=== PATIENT | female | born 1995 | race Caucasian/White ===

== ENCOUNTER 2017-08-18 15:58 | Emergency (ER) | payer OTHER ==
[2017-08-18] MEDS: ONDANSETRON PF 4 MG/2 ML VIAL. IV (16:58)
[2017-08-18] MEDS: IV NORMAL SALINE 1000ML BAG 1,000 ML IV (16:59)
[2017-08-18] MEDS: fentaNYL PF VIAL 100 MCG/2 ML VIAL IV (17:01)
[2017-08-18 17:04] LABS: URINE HCG POC HCG NEGATIVE (Negative)
[2017-08-18 17:10] LABS: ADD MAN DIFF? NO
[2017-08-18 17:12] LABS: BASO # 0.1 x10^3/uL (0.0-0.2); BASO % 1 % (0-3); EOS # 0.2 x10^3/uL (0.0-0.7); EOS % 2 % (0-3); HEMOGLOBIN 13.3 g/dL (12.0-15.5); LYMPH # 2.6 x10^3/uL (1.0-4.8); LYMPH % 25 % (24-48); MEAN CORPUSCULAR HEMOGLOBIN 30 pg (25-35); MEAN CORPUSCULAR HGB CONC 34 g/dL (31-37); MEAN CORPUSCULAR VOLUME 87 fL (79-100); MONO # 0.6 x10^3/uL (0.0-1.1); MONO % 6 % (0-9); NEUT # 6.9 x10^3uL (1.8-7.7); NEUT % 66 % (31-73); PLATELET COUNT 264 x10^3/uL (140-400); RED CELL DISTRIBUTION WIDTH 12.9 % (11.5-14.5); WHITE BLOOD COUNT 10.3 x10^3/uL (4.0-11.0)
[2017-08-18 17:13] LABS: BILIRUBIN,URINE NEGATIVE (NEG); CLARITY,URINE CLEAR; COLOR,URINE YELLOW; GLUCOSE,URINE NEGATIVE (NEG); NITRITE,URINE NEGATIVE (NEG); PH,URINE 6.5; PROTEIN,URINE NEGATIVE (NEG-TRACE); UROBILINOGEN,URINE 0.2 mg/dL (0.2 mg/dL)
[2017-08-18 17:20] LABS: BARBITURATES NEG (NEG); BENZODIAZEPINES NEG (NEG); CANNABINOIDS POS (NEG); COCAINE NEG (NEG); METHADONE NEG (NEG); OPIATES NEG (NEG); PHENCYCLIDINE NEG (NEG)
[2017-08-18 17:22] LABS: AMPHETAMINE/METHAMPHETAMINE NEG (NEG); ETHANOL, URINE NEG (NEG)
[2017-08-18 17:23] LABS: PARTIAL THROMBOPLASTIN TIME 23 SEC (24-38); PROTHROMBIN TIME PATIENT 12.9 SEC (11.7-14.0)
[2017-08-18 17:24] LABS: BACTERIA,URINE FEW /HPF (0-FEW); RBC,URINE 0 /HPF (0-2); SQUAMOUS EPITHELIAL CELL,UR MOD /LPF; WBC,URINE 0 /HPF (0-4)
[2017-08-18 17:25] LABS: HYALINE CASTS, URINE MODERATE /HPF
[2017-08-18 17:29] LABS: ANION GAP 11 (6-14); BLOOD UREA NITROGEN 11 mg/dL (7-20); BUN/CREATININE RATIO 16 (6-20); CALCIUM 8.8 mg/dL (8.5-10.1); CARBON DIOXIDE 23 mmol/L (21-32); CHLORIDE 107 mmol/L (98-107); CREATININE 0.7 mg/dL (0.6-1.0); GFR 104.6; GLUCOSE 114 mg/dL (70-99); SODIUM 141 mmol/L (136-145)
[2017-08-18 17:35] LABS: ACETAMIN < 2 mcg/ml (10-30); ALBUMIN 3.4 g/dL (3.4-5.0); ALK PHOS 62 U/L (46-116); ALT (SGPT) 22 U/L (14-59); AST (SGOT) 22 U/L (15-37); CREATINE KINASE 75 U/L (26-192); ETHANOL < 10 mg/dL (0-10); LIPASE 129 U/L (73-393); SALIC < 2.8 mg/dL (2.8-20.0); TOTAL BILIRUBIN 0.1 mg/dL (0.2-1.0); TOTAL PROTEIN 6.9 g/dL (6.4-8.2)
[2017-08-18 17:37] LABS: TROPONINI < 0.017 ng/mL (0.000-0.055)
[2017-08-18 17:39] LABS: NT-PRO BNP 56 pg/mL (0-124)
[2017-08-18 17:42] LABS: THYROID STIM HORMONE (TSH) 1.042 uIU/mL (0.358-3.74)
[2017-08-18] MEDS ORDERED: CONTRAST GIVEN MC (17:45)
[2017-08-18] MEDS: IOHEXOL 300 MG/ML 100ML VIAL. IV (17:50)
== END 2017-08-18 19:49 | disposition home or self-care (01) ==
LOC: ER 15:58
DX: R07.89 Other chest pain (principal); R20.2 Paresthesia of skin; F12.10 Cannabis abuse, uncomplicated; R53.1 Weakness; F32.9 Major depressive disorder, single episode, unspecified
CPT/HCPCS: 36415; 70450; 70496; 70498; 71045; 80053; 80307; 80329; 81001; 81025; 82550; 83690; 83735; 83880; 84443; 84484; 85025; 85610; 85730; 93005; 96361; 96374; 96375; 99285-25; G0480; J2405; J3010; J7030; Q9967

== ENCOUNTER 2018-04-13 16:19 | Emergency (ER) | payer OTHER ==
[~2018-04-13] VITALS: Ht 160 cm; Wt 84.8 kg
[~2018-04-13 16:19] MED LIST: BUSP10TA PO; ESCITALOPRAM OX20 MG PO; HYDR25CA PO; LEXAPRO20 MG PO; NORE1TAB PO; OXCA300T3 PO
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
[2018-04-13 17:05] LABS: BASO # 0.1 x10^3/uL (0.0-0.2); BASO % 1 % (0-3); EOS # 0.2 x10^3/uL (0.0-0.7); EOS % 2 % (0-3); HEMATOCRIT 36.9 % (36.0-47.0); HEMOGLOBIN 12.7 g/dL (12.0-15.5); LYMPH # 3.6 x10^3/uL (1.0-4.8); LYMPH % 36 % (24-48); MEAN CORPUSCULAR HEMOGLOBIN 30 pg (25-35); MEAN CORPUSCULAR HGB CONC 35 g/dL (31-37); MEAN CORPUSCULAR VOLUME 87 fL (79-100); MONO # 0.6 x10^3/uL (0.0-1.1); MONO % 6 % (0-9); NEUT # 5.5 x10^3uL (1.8-7.7); NEUT % 55 % (31-73); PLATELET COUNT 272 x10^3/uL (140-400); RED BLOOD COUNT 4.26 x10^6/uL (3.50-5.40); RED CELL DISTRIBUTION WIDTH 12.8 % (11.5-14.5)
[2018-04-13 17:07] LABS: BILIRUBIN,URINE NEGATIVE (NEG); CLARITY,URINE CLEAR; COLOR,URINE YELLOW; NITRITE,URINE NEGATIVE (NEG); PROTEIN,URINE NEGATIVE (NEG-TRACE); UROBILINOGEN,URINE 0.2 mg/dL (0.2 mg/dL)
[2018-04-13 17:18] LABS: CALCIUM 8.9 mg/dL (8.5-10.1); CREATININE 0.9 mg/dL (0.6-1.0); GFR 78.3; POTASSIUM 3.6 mmol/L (3.5-5.1)
[2018-04-13 17:24] LABS: ALBUMIN 3.6 g/dL (3.4-5.0); TOTAL BILIRUBIN 0.3 mg/dL (0.2-1.0); TOTAL PROTEIN 7.2 g/dL (6.4-8.2)
[2018-04-13 17:28] LABS: PREG TEST PT QUAL NEGATIVE (NEG)
[2018-04-13 17:31] LABS: BACTERIA,URINE FEW /HPF (0-FEW); RBC,URINE OCC /HPF (0-2); WBC,URINE 0 /HPF (0-4)
[2018-04-13 17:32] LABS: HYALINE CASTS, URINE OCCASIONAL /HPF; SQUAMOUS EPITHELIAL CELL,UR MOD /LPF
[2018-04-13] MEDS ORDERED: ACETAMINOPHEN 500 MG TABLET PO ONE (17:45)
--- NOTE | 2018-04-13 19:04 | RAD ---
Transvaginal ultrasound pelvis: HISTORY: Pelvic pain Transvaginal sonographic examination of the pelvis were performed and multiple static images were obtained. The uterus and ovaries appear normal. The endometrium appears normal measures 2.5 mm in thickness. The right ovary measures 2.6 x 1.6 x 1.3 cm and has normal blood flow. The left ovary measures 2.0 x 1.4 x 1.3 cm and has normal blood flow. There is trace of free fluid. IMPRESSION: No significant findings. Electronically signed by: Edinson Ashley III, MD (04/13/2018 7:00 PM) [facility]
[2018-04-13] MEDS ORDERED: cefTRIAXone IM 250 MG VIAL IM ONE (20:00)
[2018-04-13] MEDS ORDERED: DOXY100C14 PO (20:03)
[2018-04-13 20:11] VITALS: BP 116/63
[2018-04-14 12:18] LABS: GC PROBE Negative (Negative)
== END 2018-04-13 20:19 | disposition home or self-care (01) ==
LOC: ER 16:19
DX: N73.9 Female pelvic inflammatory disease, unspecified (principal); F41.9 Anxiety disorder, unspecified; F32.9 Major depressive disorder, single episode, unspecified; K21.9 Gastro-esophageal reflux disease without esophagitis; F17.210 Nicotine dependence, cigarettes, uncomplicated
CPT/HCPCS: 36415; 76830; 80053; 81001; 83690; 84703; 85025; 87491; 87591; 96372; 99284; J0696; Q0111

== ENCOUNTER 2018-11-15 01:55 | Emergency (ER) | payer OTHER ==
[~2018-11-15] VITALS: Ht 160 cm; Wt 77.6 kg
[~2018-11-15 01:55] MED LIST changes: +DOXY100C14 PO
[2018-11-15] MEDS ORDERED: LIDOCAINE 1%/EPI 1:100,000 20 ML VIAL. ONE (02:35)
[2018-11-15] MEDS ORDERED: LIDOCAINE 2%/EPI 1:100,000 20 ML VIAL. IJ ONE (02:45)
[2018-11-15] MEDS ORDERED: NEOMY/BACITR/POLYMYXIN OINT PACKET. TP ONE (02:45)
[2018-11-15] MEDS ORDERED: KETOROLAC 30 MG/ML VIAL. IM ONE (03:15)
[2018-11-15 03:30] VITALS: BP 110/60
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
== END 2018-11-15 04:16 | disposition home or self-care (01) ==
LOC: ER 01:55
DX: S01.112A Laceration without foreign body of left eyelid and periocular area, initial encounter (principal); M54.2 Cervicalgia; R51 Headache; K21.9 Gastro-esophageal reflux disease without esophagitis; Y08.09XA Assault by strike by other specified type of sport equipment, initial encounter; Y93.89 Activity, other specified; Y92.89 Other specified places as the place of occurrence of the external cause; Y99.8 Other external cause status
CPT/HCPCS: 12013; 70450; 70486; 72125; 96372; 99284; J1885; J2060; J3490

== ENCOUNTER 2018-12-26 15:48 | Emergency (ER) | payer OTHER ==
[~2018-12-26] VITALS: Ht 162.6 cm; Wt 75.3 kg
[2018-12-26 15:48] VITALS: BP 125/64
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
--- NOTE | 2018-12-26 16:56 | RAD ---
Exam: Left finger 3 views INDICATION: Pinky finger injury TECHNIQUE: Frontal view of the hand with oblique and lateral views of the fifth digit Comparisons: None FINDINGS: Transverse comminuted fracture through the base of the proximal metaphysis of the proximal phalanx fifth digit. [place] radial angulation and moderate displacement is noted. There is surrounding soft tissue swelling. No other fractures are seen. Bone mineralization is normal. IMPRESSION: Transverse comminuted fracture through the proximal phalanx fifth digit at its proximal metaphysis Electronically signed by: Evette Kwan MD (12/26/2018 4:52 PM) [facility]
[2018-12-26] MEDS ORDERED: BUPIVACAINE MPF 0.5% 30 ML VIAL. INJ ONE (17:00)
--- NOTE | 2018-12-26 18:04 | RAD ---
Left fifth finger 3 views. HISTORY: Post reduction 3 views were taken of the left fifth finger. There is been an improvement in the angulation with persistent mild angulation of the fracture of the proximal phalanx. Angulation is best seen on the oblique view. There is slight displacement. IMPRESSION: 1. Mild improvement in the angulation with persistent angulation best seen on the oblique view. 2. Mild displacement. Electronically signed by: Jose Luis Salinas MD (12/26/2018 6:01 PM) [facility]
[2018-12-27] MEDS ORDERED: HYDR-2761 PO (21:17)
== END 2018-12-26 18:10 | disposition home or self-care (01) ==
LOC: ER 15:48
DX: S62.617A Displaced fracture of proximal phalanx of left little finger, initial encounter for closed fracture (principal); F41.9 Anxiety disorder, unspecified; F32.9 Major depressive disorder, single episode, unspecified; K21.9 Gastro-esophageal reflux disease without esophagitis; Z90.89 Acquired absence of other organs; W23.0XXA Caught, crushed, jammed, or pinched between moving objects, initial encounter; Y93.89 Activity, other specified; Y92.89 Other specified places as the place of occurrence of the external cause; Y99.8 Other external cause status
CPT/HCPCS: 26725; 73140; 99284; J3490

== ENCOUNTER 2018-12-27 20:29 | Emergency (ER) | payer OTHER ==
[~2018-12-27] VITALS: Ht 162.6 cm; Wt 75.3 kg
[2018-12-27 20:40] VITALS: BP 125/64
--- NOTE | 2018-12-27 21:10 | PHYS DOC ---
Past Medical History Past Medical History: Anxiety, Depression, GERD, Other Additional Past Medical Histor: CUTTING, ulcer, chlamydia and Trichomonas Past Surgical History: Tonsillectomy Additional Past Surgical Histo: stent teeth Alcohol Use: Occasionally Drug Use: Cocaine, Marijuana Adult General Chief Complaint Chief Complaint: HAND PROBLEM HPI HPI Patient is a 23 year old female who presents to the emergency department complaining of pain in her left fifth finger. Patient states she was evaluated in our emergency department yesterday and diagnosed with a fractured left fifth finger. Patient states she had to leave before pain medications were prescribed. She denies any new injury. She rates pain 8 out of 10 on the pain scale, she denies any alleviating factors. The pain increases with movement and palpation. ROS Patient denies any fever, numbness, tingling, or increased swelling of the left finger. All other ROS is neg unless otherwise noted in HPI. Review of Systems Review of Systems See Above Allergies Allergies Allergies Coded Allergies Type Severity Reaction Last Updated Verified No Known Drug Allergies 06/21/14 No Physical Exam Physical Exam Constitutional: Well developed, well nourished, no acute distress, non-toxic appearance. [] HENT: Normocephalic, atraumatic, bilateral external ears normal, nose normal. [] Eyes: conjunctiva normal, no discharge. [] Neck: Normal range of motion, no stridor. [] Cardiovascular:Heart rate regular rhythm Lungs & Thorax: Respirations even and unlabored, no retractions, no respiratory distress Skin: Warm, dry, no erythema, no rash. [] Extremities: Left fifth digit: Tenderness to palpation, cap refill less than 2 seconds, no cyanosis, ulnar gutter splint in place Neurologic: Alert and oriented X 3, normal motor function, normal sensory function, no focal deficits noted. [] Psychologic: Affect normal, judgement normal, mood normal. [] Current Patient Data Vital Signs Vital Signs Date Time Temp Pulse Resp B/P (MAP) Pulse Ox O2 Delivery O2 Flow Rate FiO2 12/27/18 20:40 98.6 107 15 125/64 (84) 98 Room Air 98.6 EKG EKG [] Radiology/Procedures Radiology/Procedures [] Course & Med Decision Making Course & Med Decision Making Pertinent Labs and Imaging studies reviewed. (See chart for details) Patient presented with request for pain medication after being diagnosed with a fracture of the left fifth digit at this ER yesterday. Patient states she was unable to wait for pain medication to be prescribed due to a number emergency. We'll prescribe hydrocodone 5/325 mg tablets take 1 tablet with food every 6 hours as needed for pain. Follow-up with the [facility] hand surgeon as instructed yesterday. Patient verbalized an understanding of home care, medications, follow-up, and return to ED instructions and was in agreement with the plan of care. [] Dragon Disclaimer Dragon Disclaimer This electronic medical record was generated, in whole or in part, using a voice recognition dictation system. Departure Departure Impression: Primary Impression: Inadequate pain control Disposition: HOME, SELF-CARE Condition: STABLE Referrals: ANEL CARMICHAEL MD (PCP) Patient Instructions: Pain Medicine Instructions, [id number] Additional Instructions: Fill the prescription and use as directed. Follow up with [facility] hand surgeon as instructed. Scripts Hydrocodone Bit/Acetaminophen (HYDROCODONE-APAP 5-325 ) 1 Tab Tablet 1 TAB PO PRN Q6HRS PRN for PAIN for 3 Days, #12 TAB 0 Refills Prov: KRYSTA IRELAND BROWNFIELD REDEVELOPMENT SITE MANAGER 12/27/18 KRYSTA IRELAND BROWNFIELD REDEVEL[employer] SITE MANAGER Dec 27, 2018 21:10
[2018-12-27] MEDS ORDERED: HYDR-2761 PO (21:17)
== END 2018-12-27 21:22 | disposition home or self-care (01) ==
LOC: ER 20:29
DX: M79.645 Pain in left finger(s) (principal); K21.9 Gastro-esophageal reflux disease without esophagitis; Z95.5 Presence of coronary angioplasty implant and graft
CPT/HCPCS: 99283

== ENCOUNTER 2019-02-09 04:55 | Emergency (ER) | payer OTHER ==
[~2019-02-09] VITALS: Ht 160 cm; Wt 77.1 kg
[~2019-02-09 04:55] MED LIST changes: +HYDR-2761 PO
[2019-02-09 06:22] LABS: PREG TEST PT QUAL NEGATIVE (NEG)
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
[2019-02-09] MEDS: ACETAMINOPHEN 500 MG TABLET PO ONE (07:14)
[2019-02-09] MEDS ORDERED: RALT400T PO (07:24)
[2019-02-09] MEDS ORDERED: EMTR1TAB8 PO (07:24)
[2019-02-09] MEDS: AZITHROMYCIN 250 MG TABLET. PO ONE (08:20)
[2019-02-09] MEDS: cefTRIAXone IM 250 MG VIAL IM ONE (08:20)
[2019-02-09] MEDS: RALTEGRAVIR 400 MG TABLET. PO ONE (08:20)
[2019-02-09] MEDS: EMTRICITAB/TENOFOVIR 200/300MG TABLET. PO ONE (08:21)
[2019-02-09 08:25] VITALS: BP 130/82
== END 2019-02-09 08:45 | disposition home or self-care (01) ==
LOC: ER 04:55 → EEVIPCON 04:55 → ER 08:45
DX: T74.21XA Adult sexual abuse, confirmed, initial encounter (principal); S00.83XA Contusion of other part of head, initial encounter; R51 Headache; Z88.8 Allergy status to other drugs, medicaments and biological substances; Y93.89 Activity, other specified; Y92.89 Other specified places as the place of occurrence of the external cause; Y99.8 Other external cause status
CPT/HCPCS: 70450; 72125; 84703; 96372; 99285; J0696; Q0144

== ENCOUNTER 2020-12-15 12:37 | Inpatient (IN) | payer OTHER ==
[~2020-12-15] VITALS: Ht 165.1 cm; Wt 73.6 kg
[~2020-12-15 12:37] MED LIST changes: +DOXY-181 PO; -DOXY100C14 PO; +EMTR1TAB8 PO; +RALT400T PO
[2020-12-15] MEDS ORDERED: IV NORMAL SALINE 1000ML BAG 1,000 ML IV ONE ×2 (13:00)
[2020-12-15] MEDS ORDERED: ZIPRASIDONE IM 20 MG VIAL. IM ONE ×2 (13:08→13:15)
[2020-12-15 13:25] LABS: BASO % 1 % (0-3); EOS # 0.1 x10^3/uL (0.0-0.7); EOS % 2 % (0-3); HEMATOCRIT 39.3 % (36.0-47.0); HEMOGLOBIN 13.4 g/dL (12.0-15.5); LYMPH # 2.2 x10^3/uL (1.0-4.8); LYMPH % 42 % (24-48); MEAN CORPUSCULAR HEMOGLOBIN 30 pg (25-35); MEAN CORPUSCULAR HGB CONC 34 g/dL (31-37); MEAN CORPUSCULAR VOLUME 87 fL (79-100); MONO # 0.3 x10^3/uL (0.0-1.1); MONO % 6 % (0-9); NEUT # 2.7 x10^3/uL (1.8-7.7); NEUT % 50 % (31-73); PLATELET COUNT 200 x10^3/uL (140-400); RED BLOOD COUNT 4.51 x10^6/uL (3.50-5.40); RED CELL DISTRIBUTION WIDTH 12.8 % (11.5-14.5); WHITE BLOOD COUNT 5.3 x10^3/uL (4.0-11.0)
[2020-12-15] MEDS ORDERED: KETAMINE HCL 500 MG/10 ML VIAL. IV ONE (13:30)
[2020-12-15 13:45] LABS: CALCIUM 8.5 mg/dL (8.5-10.1); CREATININE 0.8 mg/dL (0.6-1.0); GFR 87.4; POTASSIUM 4.2 mmol/L (3.5-5.1)
[2020-12-15] MEDS ORDERED: chlorproMAZINE IM 25 MG/ML AMPUL IM ONE (13:45)
[2020-12-15] MEDS ORDERED: diphenhydrAMINE 50 MG/ML VIAL IVP ONE (13:45)
[2020-12-15 13:47] LABS: PREG TEST PT QUAL NEGATIVE (NEG)
[2020-12-15 13:49] LABS: ACETAMIN < 2.0 mcg/ml (10-30); ETHANOL < 10 mg/dL (0-10); SALIC < 2.8 mg/dL (2.8-20.0)
[2020-12-15] MEDS ORDERED: diphenhydrAMINE 50 MG/ML VIAL ONE (13:52)
[2020-12-15] MEDS ORDERED: OLANZapine IM 10 MG VIAL. IM ONE (14:00)
--- NOTE | 2020-12-15 14:19 | RAD ---
AP chest x-ray HISTORY: Drug overdose. FINDINGS: Heart size normal. Mediastinal silhouette is normal. No pneumothorax, pulmonary opacities o r pleural effusions. Bones are unremarkable. IMPRESSION: No acute process evident. Electronically signed by: Jr Quintana MD (12/15/2020 2:17 PM) [facility]
--- NOTE | 2020-12-15 14:39 | RAD ---
CT HEAD INDICATION: Altered mental status COMPARISON: None Available. Exposure: One or more of the following individualized dose reduction techniques were utilized for thi s examination: 1. Automated exposure control 2. Adjustment of the mA and/or kV according to patient size 3. Use of iterative reconstruction technique TECHNIQUE: 5 mm contiguous axial images were obtained from the skull base to the vertex in both bone and soft tissue algorithm. FINDINGS: No abnormal attenuation within the brain parenchyma. No evidence of acute intracranial hemorrhage. No extra-axial fluid collections. No mass effect or midline shift. Ventricular size is appropriate. Basal cisterns are patent. No fractures identified.Whatley-white differentiation is preserved.Globes and orbits are within normal l imits. Paranasal sinuses and mastoid air cells are clear. IMPRESSION: No acute intracranial findings. Electronically signed by: Bernardino Newsome MD (12/15/2020 2:36 PM) [id number]
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
[2020-12-15 14:48] LABS: BILIRUBIN,URINE NEGATIVE (NEG); CLARITY,URINE CLEAR; COLOR,URINE YELLOW; NITRITE,URINE NEGATIVE (NEG); PH,URINE 6.5 (<5.0-8.0); PROTEIN,URINE NEGATIVE (NEG-TRACE); UROBILINOGEN,URINE 0.2 mg/dL (0.2 mg/dL)
--- NOTE | 2020-12-15 14:50 | EKG ---
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
[2020-12-15 14:54] LABS: BARBITURATES NEG (NEG); BENZODIAZEPINES NEG (NEG); CANNABINOIDS NEG (NEG); COCAINE NEG (NEG); METHADONE NEG (NEG); OPIATES NEG (NEG); PHENCYCLIDINE NEG (NEG)
[2020-12-15 14:59] LABS: AMPHETAMINE/METHAMPHETAMINE NEG (NEG); BACTERIA,URINE 0 /HPF (0-FEW); RBC,URINE 0 /HPF (0-2); WBC,URINE 0 /HPF (0-4)
[2020-12-15 15:40] LABS: PROTHROMBIN TIME PATIENT 13.5 SEC (11.7-14.0)
[2020-12-15 17:27] LABS: ACETAMIN < 2.0 mcg/ml (10-30)
[2020-12-15 18:29] VITALS: BP 122/73
--- NOTE | 2020-12-15 18:52 | HP ---
ADMIT DATE: 12/15/2020 CHIEF COMPLAINT: Ingestion of Xanax. HISTORY OF PRESENT ILLNESS: The patient is a pleasant 25-year-old female who was having an argument with her family. She apparently took a bottle of 90 Xanax and swallow it the right in front of them. She presented to the ER for evaluation by ambulance. She was screaming. The ER doctor appropriately sedated her with some Thorazine and Geodon. She was still screaming, we had to give her an IM injection of Zyprexa. She is now in room 4 in the ER where she has been examined. PAST MEDICAL HISTORY: Psychiatric issues. Suspect possible schizophrenia, depression, anxiety. ALLERGIES: None. FAMILY HISTORY: Depression. SOCIAL HISTORY: We were not sure if she smokes, drinks or take drugs. She is sedated. MEDICATIONS: Reviewed, please refer to the MRAD. She has a history of being on Zyprexa. REVIEW OF SYSTEMS: Unable to obtain. The patient is sedated. PHYSICAL EXAMINATION: VITALS: Within normal limits and are stable. GENERAL: She is sedated. HEENT: Normal cephalic atraumatic, external auditory canals are patent. EYES: Extraocular muscles are intact, pupils are equally round and reactive to light and accommodation. MUSCULOSKELETAL: Well developed, well nourished, good range of motion. ENDOCRINE: No thyromegaly was palpated. LYMPHATICS: No cervical chain or axillary nodes were noted. HEMATOPOIETIC: No bruising. NECK: Supple, no JVD, no thyromegaly was noted. LUNGS: Clear to auscultation in all lung morrell without rhonchi or wheezing. HEART: RRR, S1, S2 present. Peripheral pulses intact, no obvious murmurs were noted. ABDOMEN: Soft, nontender. Positive bowel sounds no organomegaly, normal bowel sounds. EXTREMITIES: Without any cyanosis, clubbing, or edema. Pedal pulses intact, Homans sign is negative. NEUROLOGIC: She is sedated. PSYCHIATRIC: She is sedated. SKIN: No ulcerations or rashes, good skin turgor, no jaundice. VASCULAR: Good capillary refill, neurovascular bundle appears to be intact. LABORATORY DATA: Hematology is normal. Electrolytes are normal. Glucose is slightly high at 119. INR is 1. Drug screen surprisingly negative. Urinalysis is negative. COVID testing is negative. Chest x-ray is negative. CT of the head is negative. ASSESSMENT AND PLAN: Ingestion of benzodiazepines. The patient has been admitted. We are using p.r.n. antipsychotics including Zyprexa, which seems to work best for her. She also got a dose of Geodon, ketamine, Thorazine and Benadryl. For now, we are going to let her sleep this off for a couple of days. We will continue her p.r.n. sedatives and then once she has cleared the drugs from her system, we will have to have the psychiatric assessment team look at her cardiac monitoring, home medications when possible, venous thrombosis prophylaxis. Full code. LUIS/ALBERTO DR: Luna TID: [id number]
[2020-12-15 19:21] VITALS: BP 119/70
[2020-12-15] MEDS ORDERED: ETOMIDATE 20 MG/10 ML VIAL. IV ONE (20:25)
[2020-12-15] MEDS ORDERED: SUCCINYLCHOLINE 200 MG/10 ML VIAL. ONE (20:26)
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
--- NOTE | 2020-12-16 04:56 | NUR ---
Brianda, biodiesel processing technician, has been charting in the ED 1:1 charting option, not able to visualize per this television script writer, Brianda did show that she was charting every 15 minutes as per order
--- NOTE | 2020-12-16 06:18 | NUR ---
Brianda Torres, ed staff tech, sitting on 1:1, has been charting vitals, 1:1 room checks, etc, per ED charting, this data analyst report writer unable to view per my assessment...
[2020-12-16 07:00] VITALS: BP 124/76
[2020-12-16 11:00] VITALS: BP 117/68
--- NOTE | 2020-12-16 13:31 | PDOC ---
[facility] [facility] PROGRESS NOTE Date of Service DOS: DATE: 12/16/20 TIME: 13:22 Chief Complaint Chief Complaint Acute toxic encephalopathy Intentional suicide attempt Drug overdose PAT evaluation Continue one-to-one observation History of Present Illness History of Present Illness 25-year-old female who was having an argument with her family. She apparently took a bottle of 90 Xanax and swallow it the right in front of them. She presented to the ER for evaluation by ambulance. She was screaming. The ER doctor appropriately sedated her with some Thorazine and Geodon. She was still screaming, we had to give her an IM injection of Zyprexa. 12/16/2020 No acute events overnight. Patient is resting comfortably in her bed. Pending psych evaluation with PAT team. Patient's chart, labs, images were reviewed and discussed with RN Vitals/I&O Vitals/I&O: Vital Signs Date Time Temp Pulse Resp B/P (MAP) Pulse Ox O2 Delivery O2 Flow Rate FiO2 12/16/20 11:00 98.1 102 18 117/68 (84) 98 Room Air 98.1 I & O 12/15/20 12/15/20 12/16/20 15:00 23:00 07:00 Intake Total 1000 ml 1000 ml 0 ml Output Total 175 ml Balance 1000 ml 825 ml 0 ml Physical Exam General: Alert, Oriented X3, Cooperative Heart: Regular rate Lungs: Clear Abdomen: Normal bowel sounds Extremities: No clubbing Skin: No rashes Labs Labs: Laboratory Tests Test 12/15/20 14:10 12/15/20 15:05 12/15/20 16:48 12/15/20 17:31 Urine Collection Type Unknown Urine Color Yellow Urine Clarity Clear Urine pH 6.5 (<5.0-8.0) Urine Specific Arthur <=1.005 (1.000-1.030) Urine Protein Negative mg/dL (NEG-TRACE) Urine Glucose (UA) Negative mg/dL (NEG) Urine Ketones (Stick) Negative mg/dL (NEG) Urine Blood Negative (NEG) Urine Nitrite Negative (NEG) Urine Bilirubin Negative (NEG) Urine Urobilinogen Dipstick 0.2 mg/dL (0.2 mg/dL) Urine Leukocyte Esterase Negative (NEG) Urine RBC 0 /HPF (0-2) Urine WBC 0 /HPF (0-4) Urine Bacteria 0 /HPF (0-FEW) Urine Opiates Screen Neg (NEG) Urine Methadone Screen Neg (NEG) Urine Barbiturates Neg (NEG) Urine Phencyclidine Screen Neg (NEG) Urine Amphetamine/Methamphetamine Neg (NEG) Urine Benzodiazepines Screen Neg (NEG) Urine Cocaine Screen Neg (NEG) Urine Cannabinoids Screen Neg (NEG) Urine Ethyl Alcohol Neg (NEG) Prothrombin Time 13.5 SEC (11.7-14.0) Prothromb Time International Ratio 1.0 (0.8-1.1) Activated Partial Thromboplast Time 27 SEC (24-38) Acetaminophen Level < 2.0 mcg/ml (10-30) Acetaminophen Last Dose Date Unk Acetaminophen Last Dose Time Unk SARS-CoV-2 RNA (DAYRON) Negative (Negative) SARS-CoV-2 Antigen (Rapid) Negative (NEGATIVE) Assessment and Plan Assessmemt and Plan Problems Medical Problems: (1) Agitation requiring sedation protocol Status: Acute (2) Benzodiazepine overdose Status: Acute (3) Deliberate medication overdose Status: Acute (4) Suicide attempt Status: Acute Comment Review of Relevant I have reviewed the following items sarahy (where applicable) has been applied. Medications: Current Medications Medications (Trade) Dose Ordered Sig/Sanjeev Route PRN Reason Start Time Stop Time Status Last Admin Dose Admin Chlorpromazine HCl (Thorazine Im) 50 mg 1X ONCE IM 12/15/20 13:45 12/15/20 13:46 DC 12/15/20 13:50 Diphenhydramine HCl (Benadryl) 50 mg 1X ONCE IVP 12/15/20 13:45 12/15/20 13:52 DC 12/15/20 13:54 Olanzapine (ZyPREXA IM) 10 mg 1X ONCE IM 12/15/20 14:00 12/15/20 14:01 DC 12/15/20 16:31 Justifications for Admission Other Justification KOKI BARILLAS MD Dec 16, 2020 13:31
[2020-12-16 15:00] VITALS: BP 128/67
[2020-12-16] MEDS ORDERED: HALOPERIDOL LACTATE 5 MG/ML VIAL. IVP PRN (17:30)
[2020-12-16] MEDS ORDERED: ZIPRASIDONE IM 20 MG VIAL. IM PRN (17:45)
[2020-12-16] MEDS ORDERED: ZIPRASIDONE IM 20 MG VIAL. IM ONE ×2 (18:00)
[2020-12-16] MEDS ORDERED: HALOPERIDOL LACTATE 5 MG/ML VIAL. IM ONE (18:00)
[2020-12-16 19:08] VITALS: BP 139/71
[2020-12-16 23:03] VITALS: BP 122/69
[2020-12-17] VITALS (15 sets, daily range): BP systolic 82–111; BP diastolic 37–66
--- NOTE | 2020-12-17 08:06 | PDOC ---
[facility] [facility] PROGRESS NOTE Date of Service DOS: DATE: 12/16/20 TIME: 18:04 Chief Complaint Chief Complaint Acute toxic encephalopathy Intentional suicide attempt Drug overdose Acute agitative episode with code hannon activated requiring for healthcare personnel to redirect and requiring four-point restraint, 5 mg IM Haldol and 10 mg Geodon. Patient was calm and awake and responsive but sleepy at the time of my examination. Four-point restraints was discontinued. There was no fractures or obvious trauma from episode. PAT evaluation Continue one-to-one observation History of Present Illness History of Present Illness 25-year-old female who was having an argument with her family. She apparently took a bottle of 90 Xanax and swallow it the right in front of them. She presented to the ER for evaluation by ambulance. She was screaming. The ER doctor appropriately sedated her with some Thorazine and Geodon. She was still screaming, we had to give her an IM injection of Zyprexa. 12/16/2020 No acute events overnight. Patient is resting comfortably in her bed. Pending psych evaluation with PAT team. Patient's chart, labs, images were reviewed and discussed with RN Vitals/I&O Vitals/I&O: Vital Signs Date Time Temp Pulse Resp B/P (MAP) Pulse Ox O2 Delivery O2 Flow Rate FiO2 12/17/20 03:12 96.5 83 16 108/65 (79) 98 Room Air 96.5 I & O 12/16/20 12/16/20 12/17/20 15:00 23:00 07:00 Intake Total 0 ml 0 ml Output Total 350 ml 0 ml Balance -350 ml 0 ml 0 ml Physical Exam General: Alert, Oriented X3, Cooperative Heart: Regular rate Lungs: Clear Abdomen: Normal bowel sounds Extremities: No clubbing Skin: No rashes Assessment and Plan Assessmemt and Plan Problems Medical Problems: (1) Agitation requiring sedation protocol Status: Acute (2) Benzodiazepine overdose Status: Acute (3) Deliberate medication overdose Status: Acute (4) Suicide attempt Status: Acute Comment Review of Relevant I have reviewed the following items sarahy (where applicable) has been applied. Medications: Current Medications Medications (Trade) Dose Ordered Sig/Sanjeev Route PRN Reason Start Time Stop Time Status Last Admin Dose Admin Ziprasidone (Geodon Im) 20 mg 1X ONCE IM 12/16/20 18:00 12/16/20 18:01 DC 12/16/20 17:37 Haloperidol Lactate (Haldol Inj) 5 mg 1X ONCE IM 12/16/20 18:00 12/16/20 18:01 DC 12/16/20 17:37 Justifications for Admission Other Justification KOKI BARILLAS MD Dec 17, 2020 08:06
--- NOTE | 2020-12-17 09:49 | PDOC ---
[facility] [facility] PROGRESS NOTE Date of Service DOS: DATE: 12/17/20 TIME: 09:48 Chief Complaint Chief Complaint Acute toxic encephalopathy Intentional suicide attempt Drug overdose Acute agitative episode with code hannon activated requiring for healthcare personnel to redirect and requiring four-point restraint, 5 mg IM Haldol and 10 mg Geodon. Patient was calm and awake and responsive but sleepy at the time of my examination. Four-point restraints was discontinued. There was no fractures or obvious trauma from episode. PAT evaluation Continue one-to-one observation History of Present Illness History of Present Illness 25-year-old female who was having an argument with her family. She apparently took a bottle of 90 Xanax and swallow it the right in front of them. She presented to the ER for evaluation by ambulance. She was screaming. The ER doctor appropriately sedated her with some Thorazine and Geodon. She was still screaming, we had to give her an IM injection of Zyprexa. 12/16/2020 No acute events overnight. Patient is resting comfortably in her bed. Pending psych evaluation with PAT team. Patient's chart, labs, images were reviewed and discussed with RN 12/17/2020 Patient with aggressive agitative episode overnight that required for point restraint. Code grade was actually called at the time. Haldol and Geodon was given was able to calm patient down. Currently patient is not on any restraints and is still on constant observation. We will continue to wait for her to be more at baseline until evaluation with PAT team. Patient's chart, labs, images were reviewed and discussed with RN Vitals/I&O Vitals/I&O: Vital Signs Date Time Temp Pulse Resp B/P (MAP) Pulse Ox O2 Delivery O2 Flow Rate FiO2 12/17/20 03:12 96.5 83 16 108/65 (79) 98 Room Air 96.5 I & O 12/16/20 12/16/20 12/17/20 15:00 23:00 07:00 Intake Total 0 ml 0 ml Output Total 350 ml 0 ml Balance -350 ml 0 ml 0 ml Physical Exam General: Alert, Cooperative, No acute distress Heart: Regular rate Lungs: Clear Abdomen: Normal bowel sounds Extremities: No clubbing Skin: No rashes Assessment and Plan Assessmemt and Plan Problems Medical Problems: (1) Agitation requiring sedation protocol Status: Acute (2) Benzodiazepine overdose Status: Acute (3) Deliberate medication overdose Status: Acute (4) Suicide attempt Status: Acute Comment Review of Relevant I have reviewed the following items sarahy (where applicable) has been applied. Medications: Current Medications Medications (Trade) Dose Ordered Sig/Sanjeev Route PRN Reason Start Time Stop Time Status Last Admin Dose Admin Ziprasidone (Geodon Im) 20 mg 1X ONCE IM 12/16/20 18:00 12/16/20 18:01 DC 12/16/20 17:37 Haloperidol Lactate (Haldol Inj) 5 mg 1X ONCE IM 12/16/20 18:00 12/16/20 18:01 DC 12/16/20 17:37 Justifications for Admission Other Justification KOKI BARILLAS MD Dec 17, 2020 09:49
[2020-12-18 00:19] VITALS: BP 89/55
[2020-12-18] MEDS ORDERED: RIZA10TA91 PO (07:56)
[2020-12-18] MEDS ORDERED: CLON1TAB12 PO (07:56)
[2020-12-18] MEDS ORDERED: VALA500T9 PO ×2 (07:56)
[2020-12-18] MEDS ORDERED: [UNRECOGNIZED DRUG - CODE] PO (07:56)
[2020-12-18] MEDS ORDERED: ALBU2.5V8 IH (07:56)
[2020-12-18] MEDS ORDERED: POTA25TA PO (07:56)
[2020-12-18] MEDS ORDERED: ESCI5SOL9 PO (07:56)
[2020-12-18 11:00] VITALS: BP 89/44
[2020-12-18 13:55] LABS: CALCIUM 8.3 mg/dL (8.5-10.1); CREATININE 0.9 mg/dL (0.6-1.0); GFR 76.3
[2020-12-18 14:02] LABS: BASO % 0 % (0-3); EOS # 0.1 x10^3/uL (0.0-0.7); EOS % 2 % (0-3); HEMATOCRIT 36.5 % (36.0-47.0); HEMOGLOBIN 12.5 g/dL (12.0-15.5); LYMPH # 2.1 x10^3/uL (1.0-4.8); LYMPH % 37 % (24-48); MEAN CORPUSCULAR HEMOGLOBIN 30 pg (25-35); MEAN CORPUSCULAR HGB CONC 34 g/dL (31-37); MEAN CORPUSCULAR VOLUME 87 fL (79-100); MONO # 0.4 x10^3/uL (0.0-1.1); MONO % 6 % (0-9); NEUT # 3.1 x10^3/uL (1.8-7.7); NEUT % 54 % (31-73); PLATELET COUNT 235 x10^3/uL (140-400); RED BLOOD COUNT 4.21 x10^6/uL (3.50-5.40); WHITE BLOOD COUNT 5.7 x10^3/uL (4.0-11.0)
[2020-12-18 15:00] VITALS: BP 108/63
--- NOTE | 2020-12-18 15:53 | NUR ---
SW following. Discussed with RN. Vargas (PAT) met with pt, pt agreeable to inpatient psych. Referrals faxed to [facility] and [facility] as both places have beds. Awaiting acceptance decision. SW will continue to follow.
--- NOTE | 2020-12-18 16:58 | PDOC ---
[employer] [facility] PROGRESS NOTE Date of Service DOS: DATE: 12/18/20 TIME: 16:57 Chief Complaint Chief Complaint Acute toxic encephalopathy Intentional suicide attempt Drug overdose Acute agitative episode with code hannon activated requiring for healthcare personnel to redirect and requiring four-point restraint, 5 mg IM Haldol and 10 mg Geodon. Patient was calm and awake and responsive but sleepy at the time of my examination. Four-point restraints was discontinued. There was no fractures or obvious trauma from episode. PAT evaluation Continue one-to-one observation History of Present Illness History of Present Illness 25-year-old female who was having an argument with her family. She apparently took a bottle of 90 Xanax and swallow it the right in front of them. She presented to the ER for evaluation by ambulance. She was screaming. The ER doctor appropriately sedated her with some Thorazine and Geodon. She was still screaming, we had to give her an IM injection of Zyprexa. 12/16/2020 No acute events overnight. Patient is resting comfortably in her bed. Pending psych evaluation with PAT team. Patient's chart, labs, images were reviewed and discussed with RN 12/17/2020 Patient with aggressive agitative episode overnight that required for point restraint. Code grade was actually called at the time. Haldol and Geodon was given was able to calm patient down. Currently patient is not on any restraints and is still on constant observation. We will continue to wait for her to be more at baseline until evaluation with PAT team. Patient's chart, labs, images were reviewed and discussed with RN 12/18/2020: Patient seen and evaluated bedside. She has been out of restraints for over 24 hours. Had very pleasant conversation today, and she is agreeable to inpatient psychiatric treatment. Vitals/I&O Vitals/I&O: Vital Signs Date Time Temp Pulse Resp B/P (MAP) Pulse Ox O2 Delivery O2 Flow Rate FiO2 12/18/20 15:00 97.2 92 18 108/63 (78) 100 97.2 12/18/20 11:00 Room Air I & O 12/17/20 12/17/20 12/18/20 15:00 23:00 07:00 Intake Total 0 ml 240 ml Output Total 0 ml 600 ml Balance 0 ml -360 ml Physical Exam General: Alert, Cooperative, No acute distress Heart: Regular rate Lungs: Clear Abdomen: Normal bowel sounds Extremities: No clubbing Skin: No rashes Labs Labs: Laboratory Tests Test 12/18/20 12:35 White Blood Count 5.7 x10^3/uL (4.0-11.0) Red Blood Count 4.21 x10^6/uL (3.50-5.40) Hemoglobin 12.5 g/dL (12.0-15.5) Hematocrit 36.5 % (36.0-47.0) Mean Corpuscular Volume 87 fL (79-100) Mean Corpuscular Hemoglobin 30 pg (25-35) Mean Corpuscular Hemoglobin Concent 34 g/dL (31-37) Red Cell Distribution Width 13.0 % (11.5-14.5) Platelet Count 235 x10^3/uL (140-400) Neutrophils (%) (Auto) 54 % (31-73) Lymphocytes (%) (Auto) 37 % (24-48) Monocytes (%) (Auto) 6 % (0-9) Eosinophils (%) (Auto) 2 % (0-3) Basophils (%) (Auto) 0 % (0-3) Neutrophils # (Auto) 3.1 x10^3/uL (1.8-7.7) Lymphocytes # (Auto) 2.1 x10^3/uL (1.0-4.8) Monocytes # (Auto) 0.4 x10^3/uL (0.0-1.1) Eosinophils # (Auto) 0.1 x10^3/uL (0.0-0.7) Basophils # (Auto) 0.0 x10^3/uL (0.0-0.2) Sodium Level 139 mmol/L (136-145) Potassium Level 3.0 mmol/L (3.5-5.1) Chloride Level 103 mmol/L (98-107) Carbon Dioxide Level 30 mmol/L (21-32) Anion Gap 6 (6-14) Blood Urea Nitrogen 9 mg/dL (7-20) Creatinine 0.9 mg/dL (0.6-1.0) Estimated GFR (Cockcroft-Gault) 76.3 Glucose Level 129 mg/dL (70-99) Calcium Level 8.3 mg/dL (8.5-10.1) Assessment and Plan Assessmemt and Plan Problems Medical Problems: (1) Agitation requiring sedation protocol Status: Acute (2) Benzodiazepine overdose Status: Acute (3) Deliberate medication overdose Status: Acute (4) Suicide attempt Status: Acute Comment Review of Relevant I have reviewed the following items sarahy (where applicable) has been applied. Justifications for Admission Other Justification MO KELLY MD Dec 18, 2020 16:58
[2020-12-18] MEDS ORDERED: POTASSIUM BICARB 20 MEQ EFFERVESCENT TABLET. PO ONE (17:00)
[2020-12-18] MEDS: CITALOPRAM 20 MG TABLET. PO SCH (17:46)
[2020-12-18 19:00] VITALS: BP 114/62
[2020-12-18] MEDS: clonazePAM 0.5 MG TABLET PO SCH (21:33)
[2020-12-18] MEDS ORDERED: QUET25TA5 PO (22:56)
[2020-12-18] MEDS ORDERED: QUEtiapine 25 MG TABLET. PO PRN (23:15)
[2020-12-19 07:47] VITALS: BP 116/56
[2020-12-19] MEDS ORDERED: POTASSIUM BICARB 20 MEQ EFFERVESCENT TABLET. PO ONE (08:00)
[2020-12-19] MEDS: clonazePAM 0.5 MG TABLET PO SCH ×2 (10:38→13:51)
[2020-12-19] MEDS: CITALOPRAM 20 MG TABLET. PO SCH (10:38)
[2020-12-19 11:06] VITALS: BP 115/70
--- NOTE | 2020-12-19 12:45 | NUR ---
SW following. Discussed with RN, Buttshiginio Guevara declined pt due to capabilities. Shyla (JOSE G) came back to see pt, pt denying SI today, wants to get help. Plan is for pt to discharge to [facility] via cab. RN aware. JOSE G cleared pt for this plan and spoke with pt's mother. No further SW needs.
--- NOTE | 2020-12-19 14:43 | PDOC ---
[employer] [facility] PROGRESS NOTE Date of Service DOS: DATE: 12/19/20 TIME: 14:41 Chief Complaint Chief Complaint Acute toxic encephalopathy Intentional suicide attempt Drug overdose Acute agitative episode with code hannon activated requiring for healthcare personnel to redirect and requiring four-point restraint, 5 mg IM Haldol and 10 mg Geodon. Patient was calm and awake and responsive but sleepy at the time of my examination. Four-point restraints was discontinued. There was no fractures or obvious trauma from episode. PAT evaluation Continue one-to-one observation History of Present Illness History of Present Illness 25-year-old female who was having an argument with her family. She apparently took a bottle of 90 Xanax and swallow it the right in front of them. She presented to the ER for evaluation by ambulance. She was screaming. The ER doctor appropriately sedated her with some Thorazine and Geodon. She was still screaming, we had to give her an IM injection of Zyprexa. 12/16/2020 No acute events overnight. Patient is resting comfortably in her bed. Pending psych evaluation with PAT team. Patient's chart, labs, images were reviewed and discussed with RN 12/17/2020 Patient with aggressive agitative episode overnight that required for point restraint. Code grade was actually called at the time. Haldol and Geodon was given was able to calm patient down. Currently patient is not on any restraints and is still on constant observation. We will continue to wait for her to be more at baseline until evaluation with PAT team. Patient's chart, labs, images were reviewed and discussed with RN 12/18/2020: Patient seen and evaluated bedside. She has been out of restraints for over 24 hours. Had very pleasant conversation today, and she is agreeable to inpatient psychiatric treatment. 12/19/2020: Patient seen and evaluated. She is no longer suicidal. Unfortunately she was not accepted to [place] for inpatient psychiatric treatment. Discussed with patient and psychiatric assessment team, patient is agreeable to check herself into [facility] for voluntary admission for psychiatric treatment. Discussed with patient's mother who is also in agreement with this plan. [facility] does have a bed available and is currently awaiting her arrival. Patient will discharge with her mother to [facility] for voluntary admission. Greater than 30 minutes was spent managing the discharge of this patient. Vitals/I&O Vitals/I&O: Vital Signs Date Time Temp Pulse Resp B/P (MAP) Pulse Ox O2 Delivery O2 Flow Rate FiO2 12/19/20 11:06 98.1 74 18 115/70 (85) 99 Room Air 98.1 I & O 12/18/20 12/18/20 12/19/20 15:00 23:00 07:00 Intake Total 560 ml 100 ml Balance 560 ml 100 ml Physical Exam General: Alert, Cooperative, No acute distress Heart: Regular rate Lungs: Clear Abdomen: Normal bowel sounds Extremities: No clubbing Skin: No rashes Assessment and Plan Assessmemt and Plan Problems Medical Problems: (1) Agitation requiring sedation protocol Status: Acute (2) Benzodiazepine overdose Status: Acute (3) Deliberate medication overdose Status: Acute (4) Suicide attempt Status: Acute Comment Review of Relevant I have reviewed the following items sarahy (where applicable) has been applied. Medications: Current Medications Medications (Trade) Dose Ordered Sig/Sanjeev Route PRN Reason Start Time Stop Time Status Last Admin Dose Admin Clonazepam (KlonoPIN) 1 mg TID PO 12/18/20 21:00 12/19/20 13:51 Citalopram Hydrobromide (CeleXA) 40 mg DAILY PO 12/18/20 18:00 12/19/20 10:38 Potassium Bicarbonate (Potassium Effervescent Tablet) 40 meq 1X ONCE PO 12/18/20 17:00 12/18/20 17:05 DC 12/18/20 17:15 Potassium Bicarbonate (Potassium Effervescent Tablet) 40 meq 1X ONCE PO 12/19/20 08:00 12/19/20 08:01 DC 12/19/20 10:39 Quetiapine Fumarate (SEROquel) 25 mg PRN QHS PRN PO ANXIETY / AGITATION 12/18/20 23:15 12/18/20 23:19 Justifications for Admission Other Justification MO KELLY MD Dec 19, 2020 14:43
--- NOTE | 2020-12-19 14:45 | PDOC3 ---
Discharge Summary Visit Information Date of Admission: Dec 15, 2020 Date of Discharge: Dec 19, 2020 Final Diagnosis Problems Medical Problems: (1) Agitation requiring sedation protocol Status: Acute (2) Benzodiazepine overdose Status: Acute (3) Deliberate medication overdose Status: Acute (4) Suicide attempt Status: Acute Brief Hospital Course Allergies Allergies Coded Allergies Type Severity Reaction Last Updated Verified gabapentin Allergy Intermediate Rash 12/18/20 Yes Uncoded Allergies Type Severity Reaction Last Updated Verified UNKNOWN ANTIBIOTIC Allergy Unknown 12/17/20 Vital Signs Vital Signs Date Time Temp Pulse Resp B/P (MAP) Pulse Ox O2 Delivery O2 Flow Rate FiO2 12/19/20 11:06 98.1 74 18 115/70 (85) 99 Room Air 98.1 Lab Results Laboratory Tests Test 12/18/20 12:35 White Blood Count 5.7 x10^3/uL (4.0-11.0) Red Blood Count 4.21 x10^6/uL (3.50-5.40) Hemoglobin 12.5 g/dL (12.0-15.5) Hematocrit 36.5 % (36.0-47.0) Mean Corpuscular Volume 87 fL (79-100) Mean Corpuscular Hemoglobin 30 pg (25-35) Mean Corpuscular Hemoglobin Concent 34 g/dL (31-37) Red Cell Distribution Width 13.0 % (11.5-14.5) Platelet Count 235 x10^3/uL (140-400) Neutrophils (%) (Auto) 54 % (31-73) Lymphocytes (%) (Auto) 37 % (24-48) Monocytes (%) (Auto) 6 % (0-9) Eosinophils (%) (Auto) 2 % (0-3) Basophils (%) (Auto) 0 % (0-3) Neutrophils # (Auto) 3.1 x10^3/uL (1.8-7.7) Lymphocytes # (Auto) 2.1 x10^3/uL (1.0-4.8) Monocytes # (Auto) 0.4 x10^3/uL (0.0-1.1) Eosinophils # (Auto) 0.1 x10^3/uL (0.0-0.7) Basophils # (Auto) 0.0 x10^3/uL (0.0-0.2) Sodium Level 139 mmol/L (136-145) Potassium Level 3.0 mmol/L (3.5-5.1) Chloride Level 103 mmol/L (98-107) Carbon Dioxide Level 30 mmol/L (21-32) Anion Gap 6 (6-14) Blood Urea Nitrogen 9 mg/dL (7-20) Creatinine 0.9 mg/dL (0.6-1.0) Estimated GFR (Cockcroft-Gault) 76.3 Glucose Level 129 mg/dL (70-99) Calcium Level 8.3 mg/dL (8.5-10.1) Brief Hospital Course 25-year-old female who was having an argument with her family. She apparently took a bottle of 90 Xanax and swallow it the right in front of them. She presented to the ER for evaluation by ambulance. She was screaming. The ER doctor appropriately sedated her with some Thorazine and Geodon. She was still screaming, we had to give her an IM injection of Zyprexa. 12/16/2020 No acute events overnight. Patient is resting comfortably in her bed. Pending psych evaluation with PAT team. Patient's chart, labs, images were reviewed and discussed with RN 12/17/2020 Patient with aggressive agitative episode overnight that required for point restraint. Code grade was actually called at the time. Haldol and Geodon was given was able to calm patient down. Currently patient is not on any restraints and is still on constant observation. We will continue to wait for her to be more at baseline until evaluation with PAT team. Patient's chart, labs, images were reviewed and discussed with RN 12/18/2020: Patient seen and evaluated bedside. She has been out of restraints for over 24 hours. Had very pleasant conversation today, and she is agreeable to inpatient psychiatric treatment. 12/19/2020: Patient seen and evaluated. She is no longer suicidal. Unfortunately she was not accepted to [facility] for inpatient psychiatric treatment. Discussed with patient and psychiatric assessment team, patient is agreeable to check herself into [facility] for voluntary admission for psychiatric treatment. Discussed with patient's mother who is also in agreement with this plan. [facility] does have a bed available and is currently awaiting her arrival. Patient will discharge with her mother to [facility] for voluntary admission. Greater than 30 minutes was spent managing the discharge of this patient. Discharge Information Condition at Discharge: Improved Disposition/Orders: D/C to Home Scheduled Clonazepam (Clonazepam) 1 Mg Tablet, 1 MG PO TID for MDD, (Reported) Entered as Reported by: KARLI MILLER RN on 12/18/20755 Last Taken: Unknown Dose on Unknown Date & Time Last Action: Converted on 12/18/201699 by MO KELLY MD Escitalopram Oxalate (Escitalopram Oxalate) 5 Mg/5 Ml Solution, 20 ML PO DAILY for MDD for 30 Days, #300 Ref 0 (Reported) Entered as Reported by: KARLI MILLER RN on 12/18/20755 Last Taken: UNKNOWN on Unknown Date & Time Last Action: Converted on 12/18/201699 by MO KELLY MD Potassium Bicarbonate/Cit Ac (Klor-Con-Ef 25 Meq Tab Eff) 25 Meq Tablet.eff, 1 TAB PO HS for MDD for 30 Days, #30 Ref 0 (Reported) Entered as Reported by: KARLI MILLER RN on 12/18/20755 Last Taken: Unknown Dose on Unknown Date & Time Last Action: Reviewed on 12/18/20756 by KARLI MILLER RN Propranolol HCl (Hemangeol) 4.28 Mg/1 Ml Solution, 80 MG PO DAILY for unkown, ER, (Reported) Entered as Reported by: KARLI MILLER RN on 12/18/20755 Last Taken: Unknown Dose on Unknown Date & Time Last Action: Reviewed on 12/18/20756 by KARLI MILLER RN Quetiapine Fumarate (Seroquel) 25 Mg Tablet, 1 TAB PO QHS for sleep, , #30 Ref 2 (Reported) Entered as Reported by: EDDA TUCKER on 12/18/202255 Last Action: Reviewed on 12/18/202329 by EDDA TUCKER Valacyclovir Hcl (Valacyclovir) 500 Mg Tablet, Unknown Dose PO BID for herpes, #30 Ref 11 (Reported) Entered as Reported by: KARLI MILLER RN on 12/18/20755 Last Taken: UNKNOWN on Unknown Date & Time Last Action: Reviewed on 12/18/20756 by KARLI MILLER RN Scheduled PRN Albuterol Sulfate (Proair Hfa) 8.5 Gm Hfa.aer.ad, 2 PUFF IH PRN Q4-6HRS PRN for wheezing for 21 Days, #1 Ref 0 (Reported) Entered as Reported by: KARLI MILLER RN on 12/18/20755 Last Taken: Unknown Dose on Unknown Date & Time Last Action: Reviewed on 12/18/20756 by KARLI MILLER RN Rizatriptan Benzoate (Rizatriptan) 10 Mg Tab.rapdis, 10 MG PO PRN PRN for MIGRAINE HEADACHE, (Reported) Entered as Reported by: KARLI MILLER RN on 12/18/20755 Last Taken: Unknown Dose on Unknown Date & Time Last Action: Converted on 12/18/201699 by MO KELLY MD Discontinued Medications Valacyclovir Hcl (Valacyclovir) 500 Mg Tablet, 1 TAB PO DAILY for herpes, #30 Ref 11 (Reported) Entered as Reported by: KARLI MILLER RN on 12/18/20755 Last Action: Discontinued on 12/18/20756 by KARLI MILLER RN Justicifation of Admission Dx: Justifications for Admission: Justification of Admission Dx: Yes MO KELLY MD Dec 19, 2020 14:44
--- NOTE | 2020-12-19 15:19 | NUR ---
Discharge Note: D[facility] [place] Discharge instructions and discharge home medications reviewed with Patient and a copy given. All questions have been answered and understanding verbalized. The following instructions and handouts were given: discharge instructions, education and follow up recommendations. Discontinued lines and drains: Peripheral IV discontinued intact. Patient discharged to Home or Self Care with intentions of going to I post discharge with Parent via ambulated off unit by this RN.
== END 2020-12-19 15:23 | disposition home or self-care (01) | DRG 918 ==
LOC: ER 12:37 → EDBD 12:37 → 5 NORTH 14:40 → MERGE 14:40 → 5 NORTH 12-18 05:00
PROVIDERS: ADMIT Internal Medicine; ATTEND Internal Medicine
DX: T42.4X2A Poisoning by benzodiazepines, intentional self-harm, initial encounter (principal); F32.9 Major depressive disorder, single episode, unspecified; G43.909 Migraine, unspecified, not intractable, without status migrainosus; Z81.8 Family history of other mental and behavioral disorders; Z20.822 Contact with and (suspected) exposure to COVID-19; Z79.899 Other long term (current) drug therapy; Y92.89 Other specified places as the place of occurrence of the external cause; Z88.8 Allergy status to other drugs, medicaments and biological substances; R45.1 Restlessness and agitation
CPT/HCPCS: 36415; 51702; 70450; 71045; 80048; 80307; 80329; 81001; 82550; 83605; 83735; 83880; 84484; 84703; 85025; 85610; 85730; 87040; 87426; 93005; 96361; 96372; 96374; G0480; J1200; J1630; J3230; J3486; J3490; J7030; U0003; U0005; 99291-25; G0378

== ENCOUNTER 2021-01-25 22:29 | Emergency (ER) | payer OTHER ==
[~2021-01-25 22:29] MED LIST changes: +ALBU2.5V8 IH; +CLON1TAB12 PO; +ESCI5SOL9 PO; +POTA25TA PO; +QUET25TA5 PO; +RIZA10TA91 PO; +VALA500T9 PO; +[UNRECOGNIZED DRUG - CODE] PO
== END 2021-01-25 22:33 | disposition left against medical advice (07) ==
LOC: ER 22:29
DX: S01.511A Laceration without foreign body of lip, initial encounter (principal); Z53.21 Procedure and treatment not carried out due to patient leaving prior to being seen by health care provider; Y08.89XA Assault by other specified means, initial encounter; Y93.89 Activity, other specified; Y92.89 Other specified places as the place of occurrence of the external cause; Y99.8 Other external cause status

== ENCOUNTER → 2021-09-13 | Outpatient (CLI) | payer OTHER ==
[~2021-09-13] MED LIST changes: -POTA25TA PO; +POTA25TA21 PO
[2021-09-13 16:50] LABS: BASO % 1 % (0-3); EOS # 0.1 x10^3/uL (0.0-0.7); EOS % 1 % (0-3); HEMATOCRIT 41.2 % (36.0-47.0); LYMPH # 2.4 x10^3/uL (1.0-4.8); LYMPH % 27 % (24-48); MEAN CORPUSCULAR HEMOGLOBIN 30 pg (25-35); MEAN CORPUSCULAR HGB CONC 34 g/dL (31-37); MEAN CORPUSCULAR VOLUME 87 fL (79-100); MONO # 0.5 x10^3/uL (0.0-1.1); MONO % 5 % (0-9); NEUT # 5.9 x10^3/uL (1.8-7.7); NEUT % 66 % (31-73); PLATELET COUNT 328 x10^3/uL (140-400); RED BLOOD COUNT 4.74 x10^6/uL (3.50-5.40); RED CELL DISTRIBUTION WIDTH 13.1 % (11.5-14.5); WHITE BLOOD COUNT 8.9 x10^3/uL (4.0-11.0)
== END ==
LOC: LAB 15:43
PROVIDERS: ATTEND Registered Nurse
DX: O36.80X0 Pregnancy with inconclusive fetal viability, not applicable or unspecified (principal); Z32.00 Encounter for pregnancy test, result unknown
CPT/HCPCS: 36415; 84144; 84702; 85025; 86850; 86900; 86901